=== PATIENT | male | born 1985 | race African-American/Black ===

== ENCOUNTER 2019-06-20 22:23 | Emergency (ER) | payer OTHER ==
[~2019-06-20] VITALS: Ht 165.1 cm; Wt 78.0 kg
[2019-06-21] MEDS ORDERED: SODIUM CHLORIDE 0.9% 1,000 ML IV ONE (00:42)
[2019-06-21] MEDS ORDERED: ONDANSETRON HCL 4MG/2ML INJ IV STA (00:42)
[2019-06-21] MEDS ORDERED: KETAMINE HCL 50 MG/ML 10ML IV ONE (00:45)
[2019-06-21] MEDS ORDERED: PROPOFOL 200MG/20ML VIAL IV ONE (00:45)
[2019-06-21] MEDS ORDERED: MIDAZOLAM HCL 2 MG/2 ML VIAL IV ONE (00:45)
[2019-06-21] MEDS ORDERED: FENTANYL CITRATE/PF 50MCG/ML 2ML VIAL IV ONE (00:45)
[2019-06-21 01:42] VITALS: BP 118/75
== END 2019-06-21 02:37 | disposition home or self-care (01) ==
LOC: ER 22:23
DX: M25.521 Pain in right elbow (principal)
CPT/HCPCS: 24600; 73070; 96374; 99284; J2250; J2405; J2704; J3010; J3490; J7030; Z7610; A4565

== ENCOUNTER 2022-07-27 17:07 | Emergency (ER) | payer OTHER | END 2022-07-27 18:18 | disposition left against medical advice (07) | LOC: ER 17:18 | DX: Z53.21 Procedure and treatment not carried out due to patient leaving prior to being seen by health care provider (principal) | CPT/HCPCS: Z7610 ×5 ==

== ENCOUNTER 2023-08-05 23:52 | Emergency (ER) | payer MEDICAID, OTHER ==
[~2023-08-05] VITALS: Ht 170.2 cm; Wt 79.5 kg
[2023-08-06 00:13] VITALS: BP 161/114; TEMP 98.5; O2SAT 99
[2023-08-06 00:15] VITALS: PULSE 105; RESP 20
[2023-08-06 00:47] LABS: BASOPHILS % 1.6 % (0.0-2.0); EOSINOPHILS % 0.3 % (0.0-5.0); HEMATOCRIT. 41.4 % (42.0-52.0); LYMPHOCYTES % 24.2 % (20.0-50.0); MEAN CORPUSCULAR HEMOGLOBIN 30.5 pg (28.0-32.0); MEAN CORPUSCULAR HGB CONC 33.9 g/dL (31.0-37.0); MEAN CORPUSCULAR VOLUME 89.9 fL (80.0-94.0); MEAN PLATELET VOLUME 7.7 fl (7.4-10.4); MONOCYTES % 10.4 % (2.0-8.0); NEUTROPHILS % 63.5 % (40.0-76.0); PLATELET 241 x1000/uL (130-400); RED CELL DISTRIBUTION WIDTH 13.8 % (11.6-14.6); WHITE BLOOD COUNT 3.6 x1000/uL (4.5-11.0)
[2023-08-06 01:00] LABS: ALANINE AMINOTRANSFERASE 599 IU/L (10-49); ASPARTATE AMINOTRANSFERASE 447 IU/L (<34); BILIRUBIN TOTAL 0.5 mg/dL (0.1-1.0); CALCIUM 9.3 mg/dL (8.7-10.4); CARBON DIOXIDE 26 mEq/L (21-32); CHLORIDE 106 mEq/L (98-107); CREATININE 0.8 mg/dL (0.6-1.3); GLUCOSE 93 mg/dL (70-105); POTASSIUM 3.7 mEq/L (3.5-5.1); PROTEIN TOTAL 7.7 g/dL (6.0-8.3); SODIUM 139 mEq/L (136-145); UREA NITROGEN BLOOD 8 mg/dL (9-23)
[2023-08-06 01:03] LABS: INR 0.9; PROTHROMBIN TIME 10.5 sec (9.6-11.0)
== END 2023-08-06 02:58 | disposition left against medical advice (07) ==
LOC: ER 23:52
DX: K62.5 Hemorrhage of anus and rectum (principal)
CPT/HCPCS: 36415; 80053; 85025; 99283

== ENCOUNTER 2023-12-01 06:24 | Emergency (ER) | payer MEDICAID ==
[~2023-12-01] VITALS: Ht 167.6 cm; Wt 77.0 kg
[2023-12-01 06:30] VITALS: O2SAT 100
[2023-12-01 08:43] LABS: BASOPHILS % 0.8 % (0.0-2.0); EOSINOPHILS % 0.7 % (0.0-5.0); HEMATOCRIT. 41.6 % (42.0-52.0); HEMOGLOBIN. 14.1 g/dL (14.0-18.0); LYMPHOCYTES % 25.1 % (20.0-50.0); MEAN CORPUSCULAR HGB CONC 33.8 g/dL (31.0-37.0); MEAN CORPUSCULAR VOLUME 88.5 fL (80.0-94.0); MEAN PLATELET VOLUME 7.4 fl (7.4-10.4); NEUTROPHILS % 62.4 % (40.0-76.0); PLATELET 280 x1000/uL (130-400); RED CELL DISTRIBUTION WIDTH 13.6 % (11.6-14.6); WHITE BLOOD COUNT 3.8 x1000/uL (4.5-11.0)
[2023-12-01] MEDS: MAGNESIUM/ALUMINUM HYDROXIDE/SIMETHICONE 30ML UDC PO ONE (08:43)
[2023-12-01] MEDS: FAMOTIDINE 20MG TABLET PO ONE (08:43)
[2023-12-01 08:52] LABS: CHLORIDE 105 mEq/L (98-107); POTASSIUM 3.7 mEq/L (3.5-5.1); SODIUM 140 mEq/L (136-145)
[2023-12-01 08:53] LABS: CALCIUM 9.5 mg/dL (8.7-10.4); CARBON DIOXIDE 27 mEq/L (21-32)
[2023-12-01 08:58] LABS: CREATININE 0.8 mg/dL (0.6-1.3); GLUCOSE 82 mg/dL (70-105); UREA NITROGEN BLOOD 6 mg/dL (9-23)
[2023-12-01 09:00] LABS: TROPONIN I HIGH SENSITIVITY 8 ng/L (3.0-53)
[2023-12-01] MEDS ORDERED: FAMO-135 MT (09:42)
[2023-12-01 09:59] VITALS: BP 140/80; PULSE 71; RESP 14; TEMP 97.8
[2023-12-01] MEDS: KETOROLAC 15MG/ML VIAL IV ONE (09:59)
== END 2023-12-01 10:08 | disposition home or self-care (01) ==
LOC: ER 06:24
DX: R07.9 Chest pain, unspecified (principal); I10 Essential (primary) hypertension
CPT/HCPCS: 36415; 71045; 80048; 83880; 84484; 85025; 93005; 99285